=== PATIENT | male | born 1960 | race Caucasian/White ===

== ENCOUNTER 2017-12-07 14:56 | Emergency (ER) | payer OTHER ==
--- NOTE | 2017-12-07 15:35 | EDM.PDOC ---
ED HPI GENERAL MEDICAL PROBLEM - General Chief Complaint: Lower Extremity Injury/Pain Stated Complaint: LEFT FOOT PAIN Time Seen by Provider: 12/07/17 15:04 Source of Information: Reports: Patient History Limitations: Reports: No Limitations - History of Present Illness INITIAL COMMENTS - FREE TEXT/NARRATIVE: Presents reporting a left ankle injury. The patient states that he jumped off a trailer at about 11:00 this morning. In the process he inverted his left ankle and now has swelling bruising and pain. right ankle Pain Score (Numeric/FACES): 4 - Related Data Allergies Allergy/AdvReac Type Severity Reaction Status Date / Time No Known Allergies Allergy Verified 12/07/17 15:05 Home Meds: Home Meds amLODIPine [Norvasc] 5 mg PO DAILY 12/07/17 [History] Past Medical History HEENT History: Reports: Impaired Vision Cardiovascular History: Reports: Hypertension Respiratory History: Reports: None Gastrointestinal History: Reports: None Genitourinary History: Reports: None Musculoskeletal History: Reports: None Neurological History: Reports: None Endocrine/Metabolic History: Reports: None Hematologic History: Reports: None Immunologic History: Reports: None Oncologic (Cancer) History: Reports: None Dermatologic History: Reports: None - Past Surgical History Head Surgeries/Procedures: Reports: None HEENT Surgical History: Reports: None Cardiovascular Surgical History: Reports: None Respiratory Surgical History: Reports: None GI Surgical History: Reports: Appendectomy Male Surgical History: Reports: None Endocrine Surgical History: Reports: None Neurological Surgical History: Reports: None Musculoskeletal Surgical History: Reports: None Oncologic Surgical History: Reports: None Dermatological Surgical History: Reports: None Social & Family History - Family History Family Medical History: Noncontributory - Tobacco Use Smoking Status *Q: Never Smoker Second Hand Smoke Exposure: No - Caffeine Use Caffeine Use: Reports: None - Recreational Drug Use Recreational Drug Use: No Review of Systems - Review of Systems Review Of Systems: ROS reveals no pertinent complaints other than HPI. ED EXAM, GENERAL - Physical Exam Exam: See Below Exam Limited By: No Limitations General Appearance: Alert, No Apparent Distress Ears: Normal External Exam Nose: Normal Inspection Throat/Mouth: Normal Inspection Head: Atraumatic, Normocephalic Neck: Normal Inspection Respiratory/Chest: No Respiratory Distress, Lungs Clear, Normal Breath Sounds Cardiovascular: Normal Peripheral Pulses Peripheral Pulses: 3+: Posterior Tibial (L), Dorsalis Pedis (L) Extremities: Other (Left ankle with lateral swelling and mild ecchymosis along with tenderness. Full range of motion of the left ankle and toes without hesitation or limitation. CMS intact distally.) Neurological: Alert, Oriented Psychiatric: Normal Affect, Normal Mood Skin Exam: Warm, Dry, Intact, Normal Color, No Rash Lymphatic: No Adenopathy Course - Vital Signs Last Recorded V/S: Last Vital Signs Temp 36.6 C 12/07/17 15:05 Pulse 79 12/07/17 15:05 Resp 18 12/07/17 15:05 BP 160/92 H 12/07/17 15:05 Pulse Ox 95 12/07/17 15:05 - Orders/Labs/Meds Orders: Active Orders 24 hr Category Date Time Status Ankle Min 3V Lt [CR] Stat Exams 12/07/17 15:12 Ordered Departure - Departure Time of Disposition: 16:13 Disposition: Home, Self-Care 01 Condition: Good Clinical Impression: Calcaneal fracture Qualifiers: Encounter type: initial encounter Calcaneus location: unspecified portion of calcaneus Fracture type: closed Fracture alignment: nondisplaced Laterality: left Qualified Code(s): S92.002A - Unspecified fracture of left calcaneus, initial encounter for closed fracture - Discharge Information Referrals: Ashley Douglass DPM [Physician] - Additional Instructions: 1. No weight bearing left. Walk with crutches 2. Tylenol 1 gram 3 times daily, Aleve 2 tabs in the morning and 2 in the evening, or ibuprofen 2-3 tabs 3 times a day as needed for pain 3. Follow-up on Saturday by calling podiatry, Dr. Douglass for an appointment for further evaluation and definitive management. - My Orders Last 24 Hours: My Active Orders 12/07/17 15:12 Ankle Min 3V Lt [CR] Stat - Assessment/Plan Last 24 Hours: My Active Orders 12/07/17 15:12 Ankle Min 3V Lt [CR] Stat
[2017-12-07] MEDS ORDERED: Ketorolac 60 MG/2 ML SDV IM ONE (16:12)
--- NOTE | 2017-12-09 18:59 | CR ---
EXAM DATE: 12/07/17 PATIENT'S AGE: 57 Patient: ADELA MELÉNDEZ Facility: [place], [place] Site . Site : 1960 Study: XRay Extremity Left ankle [id number]/12/2018 3:40:53 PM Ordering Physician: Doctor Ochoa Final Report: INDICATION: Ankle pain. TECHNIQUE: Three views of the left ankle. COMPARISON: None. IMPRESSION: There is a comminuted intra-articular fracture of the calcaneus. Radiographically, there does not appear to be significant fracture displacement. No other fractures are identified. The ankle mortise is symmetric. Dictated by Seb Hatfield MD @ 12/07/2017 3:54:19 PM Dictated by: Seb Hatfield MD @ 12/07/2017 15:54:27 (Electronic Signature) Report Signed by Proxy. [email or web address]
== END 2017-12-07 16:30 | disposition home or self-care (01) ==
LOC: MW.ED 14:56
DX: S92.002A Unspecified fracture of left calcaneus, initial encounter for closed fracture (principal); I10 Essential (primary) hypertension; W17.89XA Other fall from one level to another, initial encounter; Z79.899 Other long term (current) drug therapy
CPT/HCPCS: 73610; 96372; 99283; J1885